=== PATIENT | female | born 2000 | race Caucasian/White ===

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

== ENCOUNTER 2020-05-29 20:10 | Emergency (ER) | payer OTHER ==
--- NOTE | 2020-05-29 20:31 | EDM.PDOC ---
ED HPI GENERAL MEDICAL PROBLEM - General Chief Complaint: General Stated Complaint: COVID TEST Time Seen by Provider: 05/29/20 20:15 Source of Information: Reports: Patient History Limitations: Reports: No Limitations - History of Present Illness INITIAL COMMENTS - FREE TEXT/NARRATIVE: HISTORY AND PHYSICAL: History of present illness: Patient is a 19-year-old female who presents to the ED today for screening for potential COVID outbreak. Patient works for the police department and was instructed to come and be seen for potential COVID. Patient states she has generalized body aches and a slight sore throat and denies any other symptoms or concerns. Patient states that she was indirectly exposed to a known COVID positive patient a few days ago. Patient denies fever, chills, chest pain, shortness of breath, or cough. Denies headache, neck stiff ness, change in vision, syncope, or near syncope. Denies nausea, vomiting, abdominal pain, diarrhea, constipation, or dysuria. Has not noted any blood in urine or stool. Patient has been eating and drinking appropriately. Review of systems: As per history of present illness and below otherwise all systems reviewed and negative. Past medical history: As per history of present illness and as reviewed below otherwise noncontributory. Surgical history: As per history of present illness and as reviewed below otherwise noncontributory. Social history: See social history for further information Family history: As per history of present illness and as reviewed below otherwise noncontributory. Physical exam: General: Patient is alert, oriented, and in no acute distress. Patient sitting comfortably on exam table. HEENT: Atraumatic, normocephalic, pupils equal and reactive bilaterally, negative for conjunctival pallor or scleral icterus, mucous membranes moist, TMs normal bilaterally, throat clear, neck supple, uvula midline, nontender, trachea midline. No drooling or trismus noted. No meningeal signs. No hot potato voice noted. Lungs: Patient speaking clearly without breathlessness, no wheezing or stridor, no accessory muscle use or respiratory distress. Auscultation deferred due to current COV-ID 19 outbreak. Heart: Auscultation deferred due to current COV-ID 19 outbreak. Abdomen: nondistended Pelvis: Stable nontender. Genitourinary: Deferred. Rectal: Deferred. Skin: Intact, warm, dry. No lesions or rashes noted. Extremities: Atraumatic, negative for cords or calf pain. Neurovascular unremarkable. Neuro: Awake, alert, oriented. Cranial nerves II through XII unremarkable. Cerebellum unremarkable. Motor and sensory unremarkable throughout. Exam nonfocal. Notes: Discussed importance for follow-up with primary care provider. Voices understanding and is agreeable to plan of care. Denies any further questions or concerns at this time. Diagnostics: COVID19 (declines strep) Therapeutics: None Prescription: None Impression: Pharyngitis Generalized body aches Plan: 1. Rest, ice, elevate the affected extremity. You can apply ice 15 minutes on, 15 minutes off. 2. Tylenol and/or Ibuprofen as directed for pain management or discomfort. 3. Follow up with the primary care provider as discussed. Return to the ED as needed and as discussed. Definitive disposition and diagnosis as appropriate pending reevaluation and review of above. Throat Pain Score (Numeric/FACES): 3 - Related Data Allergies Allergy/AdvReac Type Severity Reaction Status Date / Time No Known Allergies Allergy Verified 06/07/16 08:39 Home Meds: Home Meds . [No Known Home Meds] 06/07/16 [History] medroxyPROGESTERone Acetate [Depo-Provera] 150 mg IM ASDIRECTED 06/07/16 [History] Past Medical History - Past Health History Medical/Surgical History: Denies Medical/Surgical History Neurological History: Reports: Concussion Psychiatric History: Reports: Anxiety Hematologic History: Reports: None Immunologic History: Reports: None Oncologic (Cancer) History: Reports: None Dermatologic History: Reports: None - Infectious Disease History Infectious Disease History: Reports: Chicken Pox - Past Surgical History Head Surgeries/Procedures: Reports: None Social & Family History - Family History Family Medical History: Noncontributory - Caffeine Use Caffeine Use: Reports: Coffee, Soda, Tea ED ROS GENERAL - Review of Systems Review Of Systems: Comprehensive ROS is negative, except as noted in HPI. ED EXAM, GENERAL - Physical Exam Exam: See Below (see dictation) Course - Vital Signs Last Recorded V/S: Last Vital Signs Temp 97.5 F 05/29/20 20:14 Pulse 98 05/29/20 20:14 Resp 16 05/29/20 20:14 BP 150/87 H 05/29/20 20:14 Pulse Ox 98 08/30/20 20:14 - Orders/Labs/Meds Labs: Laboratory Tests 05/29/20 Range/Units 20:30 COVID-19 (EDEL) NEGATIVE (NEGATIVE) Departure - Departure Time of Disposition: 20:57 Disposition: Home, Self-Care 01 Clinical Impression: Generalized body aches Pharyngitis Qualifiers: Pharyngitis/tonsillitis etiology: unspecified etiology Qualified Code(s): J02.9 - Acute pharyngitis, unspecified - Discharge Information Referrals: PCP,None [Primary Care Provider] - Forms: ED Department Discharge Additional Instructions: The following information is given to patients seen in the emergency department who are being discharged to home. This information is to outline your options for follow-up care. We provide all patients seen in our emergency department with a follow-up referral. The need for follow-up, as well as the timing and circumstances, are variable depending upon the specifics of your emergency department visit. If you don't have a primary care physician on staff, we will provide you with a referral. We always advise you to contact your personal physician following an emergency department visit to inform them of the circumstance of the visit and for follow-up with them and/or the need for any referrals to a consulting specialist. The emergency department will also refer you to a specialist when appropriate. This referral assures that you have the opportunity for follow-up care with a specialist. All of these measure are taken in an effort to provide you with optimal care, which includes your follow-up. Under all circumstances we always encourage you to contact your private physician who remains a resource for coordinating your care. When calling for follow-up care, please make the office aware that this follow-up is from your recent emergency room visit. If for any reason you are refused follow-up, please contact the [facility] Emergency Department at and asked to speak to the emergency department charge nurse. [facility] [address] [place] [id number] [facility] [address] [place] [id number] 1. You can take ibuprofen and Tylenol as directed for pain and discomfort. Follow up with a primary care provider as discussed. Return to the ED as needed and as discussed. Sepsis Event Note (ED) - Focused Exam Vital Signs: Vital Signs Temp Pulse Resp BP Pulse Ox 05/29/20 20:14 97.5 F 98 16 150/87 H 98
[2020-05-29 21:50] VITALS: BP 132/91; PULSE 94
== END 2020-05-29 21:15 | disposition home or self-care (01) ==
LOC: MW.ED 20:10
DX: J02.9 Acute pharyngitis, unspecified (principal); R52 Pain, unspecified; Z20.828 Contact with and (suspected) exposure to other viral communicable diseases
CPT/HCPCS: 99282; 99283; U0002

== ENCOUNTER 2021-05-08 06:32 | Day surgery (SDC) | payer OTHER ==
[~2021-05-08 06:32] MED LIST: Lactated Ringers 1,000 ML IV SCH
[2021-05-08] MEDS ORDERED: Scopolamine 1.5 MG Transdermal Patch ONE (06:47)
[2021-05-08] MEDS ORDERED: Sodium Chloride 0.9% 20 ML ONE (06:52)
[2021-05-08] MEDS ORDERED: Rocuronium Bromide 50 MG/5 ML Syringe ONE ×2 (06:53→09:28)
[2021-05-08] MEDS ORDERED: Metoclopramide 10 MG/2 ML SDV ONE (06:53)
[2021-05-08] MEDS ORDERED: Ketorolac 30 MG/ML SDV ONE (06:53)
[2021-05-08] MEDS ORDERED: Dexmedetomidine 200 MCG/2 ML SDV ONE (06:53)
[2021-05-08] MEDS ORDERED: Ondansetron 4 MG/2 ML SDV ONE (06:53)
[2021-05-08] MEDS ORDERED: Dexamethasone 4 MG/ML 5 ML MDV ONE (06:53)
[2021-05-08] MEDS ORDERED: Glycopyrrolate 0.2 MG/ML SDV ONE (06:53)
[2021-05-08] MEDS ORDERED: Sugammadex Sodium 200 MG/2 ML VIAL ONE (06:53)
[2021-05-08] MEDS ORDERED: Lidocaine 2% 5 ML SDV ONE (06:53)
[2021-05-08] MEDS ORDERED: fentaNYL 250 MCG/5 ML SDV ONE (06:54)
[2021-05-08] MEDS ORDERED: Ketamine 500 mg/10 ML MDV ONE (06:54)
[2021-05-08] MEDS ORDERED: Propofol 200 MG/20 ML SDV ONE (06:54)
[2021-05-08] MEDS ORDERED: Bupivacaine 0.25% 10 ML SDV ONE (07:24)
[2021-05-08] MEDS ORDERED: Albuterol 0.083% 2.5 MG/3 ML Neb Soln NEB PRN (07:45)
[2021-05-08] MEDS ORDERED: Ondansetron 4 MG/2 ML SDV IVPUSH PRN ×2 (07:45→10:27)
[2021-05-08] MEDS ORDERED: Morphine 2 MG/ML SYRINGE IVPUSH PRN (07:45)
[2021-05-08] MEDS ORDERED: Metoclopramide 10 MG/2 ML SDV IVPUSH PRN (07:45)
[2021-05-08] MEDS ORDERED: fentaNYL 100 MCG/2 ML SDV IVPUSH PRN (07:45)
[2021-05-08] MEDS ORDERED: Naloxone 0.4 MG/ML Syringe IVPUSH PRN (07:45)
[2021-05-08] MEDS ORDERED: HYDROmorphone 1 MG/ML Syringe IVPUSH PRN (07:45)
--- NOTE | 2021-05-08 07:45 | PCM.PREANE ---
Preanesthetic Assessment - Procedure Proposed Procedure: Dx Lap - Anesthesia/Transfusion/Family Hx Anesthesia History: Prior Anesthesia Reaction (nausea) Transfusion History: No Prior Transfusion(s) - Review of Systems General: No Symptoms Pulmonary: No Symptoms (Social Smoker) Cardiovascular: No Symptoms Gastrointestinal: No Symptoms Neurological: No Symptoms Other: Reports: Thyroid Problems (Dx Hypothyroid to be seen this week to likely start on meds) - Physical Assessment NPO Status Date: 05/07/21 NPO Status Time: 22:00 Vital Signs: Last Vital Signs Temp 98.4 F 05/08/21 06:41 Pulse 78 05/08/21 06:41 Resp 16 05/08/21 06:41 BP 126/78 05/08/21 06:41 Pulse Ox 97 05/08/21 06:41 Height: 5 ft 6 in Weight: 103.419 kg ASA Class: 2 Mental Status: Alert & Oriented x3 Dentition: Reports: Normal Dentition Thyro-Mental Finger Breadths: 3 Mouth Opening Finger Breadths: 3 ROM/Head Extension: Full Lungs: Clear to Auscultation, Normal Respiratory Effort Cardiovascular: Regular Rate, Regular Rhythm - Lab Values: Laboratory Last Values WBC 9.84 K/uL (4.0-11.0) 05/08/21 07:06 RBC 4.21 M/uL (4.30-5.90) L 05/08/21 07:06 Hgb 12.9 g/dL (12.0-16.0) 05/08/21 07:06 Hct 37.6 % (36.0-46.0) 05/08/21 07:06 MCV 89.3 fL (80.0-98.0) 05/08/21 07:06 MCH 30.6 pg (27.0-32.0) 05/08/21 07:06 MCHC 34.3 g/dL (31.0-37.0) 05/08/21 07:06 RDW Std Deviation 39.6 fl (28.0-62.0) 05/08/21 07:06 RDW Coeff of Denny 12 % (11.0-15.0) 05/08/21 07:06 Plt Count 313 K/uL (150-400) 05/08/21 07:06 MPV 9.70 fL (7.40-12.00) 05/08/21 07:06 Nucleated RBC % 0.0 /100WBC 05/08/21 07:06 Nucleated RBCs # 0 K/uL 05/08/21 07:06 HCG, Qual NEGATIVE (NEG) 05/08/21 07:06 - Allergies Allergies/Adverse Reactions: Allergies Allergy/AdvReac Type Severity Reaction Status Date / Time No Known Allergies Allergy Verified 05/02/21 09:11 - Acknowledgements Anesthesia Type Planned: General Anesthesia Pt an Appropriate Candidate for the Planned Anesthesia: Yes Alternatives and Risks of Anesthesia Discussed w Pt/Guardian: Yes Pt/Guardian Understands and Agrees with Anesthesia Plan: Yes PreAnesthesia Questionnaire - Past Health History Medical/Surgical History: Denies Medical/Surgical History HEENT History: Reports: None Cardiovascular History: Reports: Hypertension Respiratory History: Reports: None Gastrointestinal History: Reports: None Genitourinary History: Reports: None Musculoskeletal History: Reports: None Neurological History: Reports: Concussion Psychiatric History: Reports: Anxiety Endocrine/Metabolic History: Reports: Hypothyroidism, Obesity/BMI 30+ Other Endocrine/Metabolic History: newly diagnosed hypothyroidism, not currently on medication, Hematologic History: Reports: None Immunologic History: Reports: None Oncologic (Cancer) History: Reports: None Dermatologic History: Reports: None - Infectious Disease History Infectious Disease History: Reports: Chicken Pox - Past Surgical History Head Surgeries/Procedures: Reports: None HEENT Surgical History: Reports: None Cardiovascular Surgical History: Reports: None Respiratory Surgical History: Reports: None GI Surgical History: Reports: None Female Surgical History: Reports: None Endocrine Surgical History: Reports: None Neurological Surgical History: Reports: None Musculoskeletal Surgical History: Reports: Other (See Below) Other Musculoskeletal Surgeries/Procedures:: ACL surgery Oncologic Surgical History: Reports: None Dermatological Surgical History: Reports: None - SUBSTANCE USE Tobacco Use Status *Q: Never Tobacco User - HOME MEDS Home Medications: Home Meds . [No Known Home Meds] 06/07/16 [History] - CURRENT (IN HOUSE) MEDS Current Meds: Current Medications Lactated Ringer's (Ringers, Lactated) 1,000 mls @ 100 mls/hr IV ASDIRECTED MIGUEL Last Admin: 05/08/21 06:50 Dose: 100 mls/hr Documented by: Discontinued Medications Bupivacaine HCl (Bupivacaine 0.25% 10 Ml Sdv) Confirm Administered Dose 10 ml .ROUTE .STK-MED ONE Stop: 05/08/21 07:25 Dexamethasone (Dexamethasone 4 Mg/Ml 5 Ml Mdv) Confirm Administered Dose 20 mg .ROUTE .ST-MED ONE Stop: 05/08/21 06:54 Dexmedetomidine HCl (Dexmedetomidine 200 Mcg/2 Ml Sdv) Confirm Administered Dose 200 mcg .ROUTE .ST-MED ONE Stop: 05/08/21 06:54 Fentanyl (Fentanyl 250 Mcg/5 Ml Sdv) Confirm Administered Dose 250 mcg .ROUTE .ST-MED ONE Stop: 05/08/21 06:55 Glycopyrrolate (Glycopyrrolate 0.2 Mg/Ml Sdv) Confirm Administered Dose 0.2 mg .ROUTE .ST-MED ONE Stop: 05/08/21 06:54 Sodium Chloride (Normal Saline) Confirm Administered Dose 20 mls @ as directed .ROUTE .ST-MED ONE Stop: 05/08/21 06:53 Acetaminophen (Ofirmev 1000 Mg/100 Ml) Confirm Administered Dose 100 mls @ as directed .ROUTE .[facility]-MED ONE Stop: 05/08/21 07:11 Ketamine HCl (Ketamine 500 Mg/10 Ml Mdv) Confirm Administered Dose 500 mg .ROUTE .ST-MED ONE Stop: 05/08/21 06:55 Ketorolac Tromethamine (Ketorolac 30 Mg/Ml Sdv) Confirm Administered Dose 30 mg .ROUTE .ST-MED ONE Stop: 05/08/21 06:54 Lidocaine (Lidocaine 2% 5 Ml Sdv) Confirm Administered Dose 5 ml .ROUTE .ST-MED ONE Stop: 05/08/21 06:54 Metoclopramide HCl (Metoclopramide 10 Mg/2 Ml Sdv) Confirm Administered Dose 10 mg .ROUTE .ST-MED ONE Stop: 05/08/21 06:54 Ondansetron HCl (Ondansetron 4 Mg/2 Ml Sdv) Confirm Administered Dose 4 mg .ROUTE .ST-MED ONE Stop: 05/08/21 06:54 Propofol (Propofol 200 Mg/20 Ml Sdv) Confirm Administered Dose 400 mg .ROUTE .ST-MED ONE Stop: 05/08/21 06:55 Rocuronium Stilwell (Rocuronium Stilwell 50 Mg/5 Ml Syringe) Confirm Administered Dose 50 mg .ROUTE .STDe Correspondent-MED ONE Stop: 05/08/21 06:54 Scopolamine (Scopolamine 1.5 Mg Transdermal Patch) Confirm Administered Dose 1.5 mg .ROUTE .STK-MED ONE Stop: 05/08/21 06:48 Last Admin: 05/08/21 07:12 Dose: 1.5 mg Documented by: Sugammadex Sodium (Sugammadex Sodium 200 Mg/2 Ml Vial) Confirm Administered Dose 200 mg .ROUTE .STK-MED ONE Stop: 05/08/21 06:54
[2021-05-08] MEDS ORDERED: HYDROmorphone 2 MG/ML Syringe ONE (09:08)
--- NOTE | 2021-05-08 10:01 | PCM.POSTAN ---
POST ANESTHESIA ASSESSMENT - MENTAL STATUS Mental Status: Alert, Oriented - VITAL SIGNS Vital Signs: Last Vital Signs Temp 98.4 F 05/08/21 06:41 Pulse 78 05/08/21 06:41 Resp 16 05/08/21 06:41 BP 126/78 05/08/21 06:41 Pulse Ox 97 05/08/21 06:41 - RESPIRATORY Respiratory Status: Respiratory Rate WNL, Airway Patent - CARDIOVASCULAR CV Status: Pulse Rate WNL - GASTROINTESTINAL GI Status: No Symptoms - PAIN Pain Score: 5 - POST OP HYDRATION Hydration Status: Adequate & Stable
--- NOTE | 2021-05-08 10:16 | PCM.OPNOTE ---
<Miri Arroyo - Last Filed: 05/08/21 10:10> - General Post-Op/Procedure Note Date of Surgery/Procedure: 05/08/21 Operative Procedure(s): Diagnostic Laparoscopy Findings: Biopsies taken of endometriosis appearing lesions found near the right uterosacral ligament and the left ovarian fossa Pre Op Diagnosis: Endometriosis Post-Op Diagnosis: Same Anesthesia Technique: MAC Primary Surgeon: Michael Patel Anesthesia Provider: Desirae Solares Dipper Machine Operator: Miri Arroyo Pathology: Lesion biopsies Fluid Replacement, Intraop: 900 EBL in mLs: 10 Complications: None Condition: Stable Free Text/Narrative:: Intake & Output 05/07/21 05/08/21 05/08/21 22:59 06:59 14:59 Output Total 30 Balance -30 <Michael Patel - Last Filed: 05/08/21 10:34> - General Post-Op/Procedure Note Operative Procedure(s): Diagnostic Laparoscopy with Biopsy of peritoneal lesions Findings: EUA showed normal sized anteverted uterus Laparoscopy showed Normal appearing uterus , Bilateral tubes and ovaries Suspected reddish possible endometriotic lesion noted around the right uterosacral ligament and left ovarian fossa Pre Op Diagnosis: Pelvic and Perineal Pain. Severe Dysmenorrrhea. Suspected Endometriosis Post-Op Diagnosis: same Anesthesia Technique: General ET Tube, MAC (General) Pathology: Right Peritoneal biopsy ( Uterosacral) Left Peritoneal biopsy ( Left ovarian fossa) Free Text/Narrative:: Intake & Output 05/07/21 05/08/21 05/08/21 22:59 06:59 14:59 Intake Total 900 Output Total 30 Balance 870
[2021-05-08] MEDS ORDERED: Ketorolac 30 MG/ML SDV IVPUSH ONE (10:27)
[2021-05-08] MEDS ORDERED: Acetaminophen/oxyCODONE 325-5 MG Tab PO PRN ×2 (10:27)
[2021-05-08] MEDS ORDERED: Promethazine 25 MG/ML SDV IM PRN (10:27)
[2021-05-08] MEDS ORDERED: Morphine 4 MG/ML Syringe IVPUSH PRN (10:27)
--- NOTE | 2021-05-08 11:05 | PCM48HPAN ---
Post Anesthesia Note - EVALUATION WITHIN 48HRS OF ANESTHETIC Vital Signs in Normal Range: Yes Patient Participated in Evaluation: Yes Respiratory Function Stable: Yes Airway Patent: Yes Cardiovascular Function Stable: Yes Hydration Status Stable: Yes Pain Control Satisfactory: Yes Nausea and Vomiting Control Satisfactory: Yes Mental Status Recovered: Yes Vital Signs: Last Vital Signs Temp 96.6 F L 05/08/21 10:25 Pulse 82 05/08/21 10:25 Resp 14 05/08/21 10:25 BP 131/70 05/08/21 10:25 Pulse Ox 97 05/08/21 10:25 - COMMENTS/OBSERVATIONS Free Text/Narrative:: Pt doing well post-op. VSS. No apparent anesthetic complications.
[2021-05-08 11:14] VITALS: BP 126/75; PULSE 85
[2021-05-08] MEDS ORDERED: Ketorolac 30 MG/ML SDV IVPUSH PRN (16:27)
--- NOTE | 2021-05-09 08:39 | OR ---
SURGEON: TONY MEZA DATE OF PROCEDURE: 05/08/2021 PREOPERATIVE DIAGNOSES: A 20-year-old para 0 with suspected endometriosis, severe dysmenorrhea, chronic pelvic pain. POSTOPERATIVE DIAGNOSES: A 20-year-old para 0 with suspected endometriosis, severe dysmenorrhea, chronic pelvic pain. PROCEDURE: Diagnostic laparoscopy with biopsy of peritoneal lesions. ESTIMATED BLOOD LOSS: 5 mL. IV FLUID: 900. COMPLICATIONS: None. NOTES AND FINDING: A tiny reddish possibly endometriotic spot noted close to the right uterosacral and in the left ovarian fossa was also some tiny reddish suspected endometriotic spot. BRIEF HISTORY: The patient is a 20-year-old para 0, who had severe dysmenorrhea and chronic pelvic pain. She had been placed on Depo-Provera for control and the patient stated she did not tolerate this medication well and she wanted to opt for more of a diagnosis before proceeding with further hormonal management. The patient was explained the risks, benefits, and alternatives and she wanted to proceed with a diagnostic laparoscopy before any hormonal management. DESCRIPTION OF PROCEDURE: The patient was taken to the operating room where general anesthesia was performed without difficulty. She was prepared and draped in the dorsal lithotomy position with Joel stirrups. The cervix was exposed and grasped with the Allis clamp and sounded and dilated to accommodate the uterine manipulator. The uterus was sounded to 7. A uterine manipulator was placed without difficulty. The speculum was removed. Attention was then placed to the abdomen where a 5 mm subumbilical incision was made after injection of 0.25% Marcaine. After incision was made, the fiberoptic trocar was placed with direct visualization to visualize until abdomen was entered. Pneumoperitoneum was then obtained to 15 mmHg. The patient was placed in Trendelenburg position. The right and the left trocars were placed 2 cm medial and superior to the anterior inferior iliac spine under direct visualization. The bowel was retracted out from the operating field. Serial pictures were taken of the anterior right and left. In the right, part of uterosacral, some spots were noted and on the left ovarian fossa some very tiny minute spots were also noted. With the aid of the scissors and the biopsy forceps, the stripping of the portion was done without any difficulty. Bleeding was noted to be controlled on visualization and no cautery was needed. After biopsy was done and hemostasis was confirmed, the pneumoperitoneum was deflated. The instruments were removed. The trocar was removed from the incision. The abdomen was then closed and the incision was closed with 3-0 Monocryl and the patient tolerated the procedure well and will follow up in 2 weeks. ZAHEER / JENNIFER /[id number]
== END 2021-05-08 11:05 | disposition home or self-care (01) ==
LOC: MW.SDS 06:32
PROVIDERS: ATTEND Obstetrics & Gynecology
DX: N94.6 Dysmenorrhea, unspecified (principal); N91.5 Oligomenorrhea, unspecified; G89.29 Other chronic pain; R10.2 Pelvic and perineal pain; E03.9 Hypothyroidism, unspecified; I10 Essential (primary) hypertension; E66.9 Obesity, unspecified; Z98.890 Other specified postprocedural states; Z82.49 Family history of ischemic heart disease and other diseases of the circulatory system; Z87.891 Personal history of nicotine dependence; Z68.36 Body mass index [BMI] 36.0-36.9, adult
CPT/HCPCS: 36415; 49321; 84703; 85027; A9270; J0131; J1100; J1170; J2704; J3010; J3490; J7120; 00840; 88305; J1885; J2405; J2765